=== PATIENT | male | born 1985 | race Caucasian/White ===

== ENCOUNTER 2019-02-12 12:21 | Emergency (ER) | payer OTHER ==
[2019-02-12 12:43] VITALS: RESP 18
--- NOTE | 2019-02-12 14:15 | ED ---
General Adult HPI - General Chief complaint: Extremity Problem,Nontraumatic Stated complaint: Legs swollen/red Time Seen by Provider: 02/12/19 13:40 Source: patient Mode of arrival: ambulatory Limitations: no limitations - History of Present Illness Initial comments: 33-year-old male patient presents to the emergency department today for evaluation of bilateral lower extremity edema. Patient states he has had swelling for quite some time however has been worsening over the last few days. Patient states his legs are now red and warm to touch. Patient states he has gained 50 pounds over the last couple of months which is concerning to him. He denies any shortness of breath or chest pain with this. States he does have a history of hepatitis C and does take methadone currently. Denies any other medications or medical conditions. Patient denies any recent rash, fever, chills, abdominal pain, nausea, vomiting, diarrhea, constipation, back pain, numbness, tingling, dizziness, weakness, hematuria, dysuria, urinary urgency, urinary frequency, headache, visual changes, or any other complaints. - Related Data Home Medications Medication Instructions Recorded Confirmed Methadone [Dolophine] 70 mg PO DAILY 02/12/19 02/12/19 Previous Rx's Medication Instructions Recorded Cephalexin [Keflex] 500 mg PO Q6HR #40 cap 02/12/19 Allergies Allergy/AdvReac Type Severity Reaction Status Date / Time amoxicillin [From Augmentin] Allergy Swelling Verified 02/12/19 13:55 bee pollen Allergy Swelling Verified 02/12/19 13:55 cefaclor [From Ceclor] Allergy Swelling Verified 02/12/19 13:55 clavulanic acid Allergy Swelling Verified 02/12/19 13:55 [From Augmentin] Penicillins Allergy Swelling Verified 02/12/19 13:55 Review of Systems ROS Statement: Those systems with pertinent positive or pertinent negative responses have been documented in the HPI. ROS Other: All systems not noted in ROS Statement are negative. Past Medical History Past Medical History: No Reported History Additional Past Medical History / Comment(s): ( use to use heroin) History of Any Multi-Drug Resistant Organisms: None Reported, Unobtainable Additional Past Surgical History / Comment(s): skin graft Past Psychological History: No Psychological Hx Reported Smoking Status: Current every day smoker Past Alcohol Use History: Occasional Past Drug Use History: None Reported General Exam Limitations: no limitations General appearance: alert, in no apparent distress, other (Physical well- developed, well-nourished adult male patient in no acute distress. Vital signs upon presentation are temperature 98.0F, pulse 111, respirations 18, blood pressure 135/75, pulse ox 99% on room air.) Eye exam: Present: normal appearance, PERRL, EOMI. Absent: scleral icterus, conjunctival injection, periorbital swelling ENT exam: Present: normal exam, normal oropharynx, mucous membranes moist Respiratory exam: Present: normal lung sounds bilaterally. Absent: respiratory distress, wheezes, rales, rhonchi, stridor Cardiovascular Exam: Present: regular rate, normal rhythm, normal heart sounds. Absent: systolic murmur, diastolic murmur, rubs, gallop, clicks GI/Abdominal exam: Present: soft, normal bowel sounds. Absent: distended, tenderness, guarding, rebound, rigid Extremities exam: Present: full ROM, normal capillary refill, other (Patient has bilateral lower extremities edema. It is nonpitting. There is some erythema overlying the bilateral lower extremities. Warm to touch. Skin is otherwise pink, warm, dry. Cap refills less than 3 seconds. Pedal pulses 2+ and equal bilaterally). Absent: normal inspection, tenderness, pedal edema, joint swelling, calf tenderness Neurological exam: Present: alert, oriented X3, CN II-XII intact Psychiatric exam: Present: normal affect, normal mood Skin exam: Present: warm, dry, intact, normal color. Absent: rash Course Vital Signs 02/12/19 02/12/19 12:39 16:11 Temperature 98.0 F 98.8 F Pulse Rate 111 H 86 Respiratory 18 18 Rate Blood Pressure 135/75 111/56 O2 Sat by Pulse 99 96 Oximetry Medical Decision Making - Medical Decision Making 33-year-old male patient presented to the emergency department today for evaluation of bilateral lower extremity edema and redness. Physical examination did reveal swollen lower legs and feet. This is nonpitting edema. He does have mild erythema overlying both lower legs. Labs reviewed and did reveal elevated liver enzymes, patient does admit to a history of hepatitis C. Blood sugar was elevated. Remainder of Labs are unremarkable. BNP negative. Chest x-ray showed no acute cardiopulmonary process. I did discuss findings and results with the patient. He'll be given DAX hose to wear for compression and instructed to elevate his legs as much as possible. He is given Keflex for early cellulitis. We'll discharge at this time to follow-up primary care physician for recheck. He is instructed to discuss elevated blood sugar and have liver enzymes rechecked. One has been referred to him. Return parameters discussed in detail. He verbalizes understanding and agrees with this plan. - Lab Data Result diagrams: 02/12/19 14:36 02/12/19 14:36 Lab Results 02/12/19 02/12/19 02/12/19 Range/Units 14:36 14:36 14:36 WBC 5.3 (3.8-10.6) k/uL RBC 4.04 L (4.30-5.90) m/uL Hgb 13.9 (13.0-17.5) gm/dL Hct 41.4 (39.0-53.0) % MCV 102.4 H (80.0-100.0) fL MCH 34.4 (25.0-35.0) pg MCHC 33.5 (31.0-37.0) g/dL RDW 14.3 (11.5-15.5) % Plt Count 82 L (150-450) k/uL Neutrophils % 66 % Lymphocytes % 25 % Monocytes % 5 % Eosinophils % 2 % Basophils % 1 % Neutrophils # 3.5 (1.3-7.7) k/uL Lymphocytes # 1.3 (1.0-4.8) k/uL Monocytes # 0.3 (0-1.0) k/uL Eosinophils # 0.1 (0-0.7) k/uL Basophils # 0.0 (0-0.2) k/uL Manual Slide Review Performed Macrocytosis Slight Sodium 139 (137-145) mmol/L Potassium 4.5 (3.5-5.1) mmol/L Chloride 108 H (98-107) mmol/L Carbon Dioxide 22 (22-30) mmol/L Anion Gap 9 mmol/L BUN 10 (9-20) mg/dL Creatinine 0.61 L (0.66-1.25) mg/dL Est GFR (CKD-EPI)AfAm >90 (>60 ml/min/1.73 sqM) Est GFR (CKD-EPI)NonAf >90 (>60 ml/min/1.73 sqM) Glucose 146 H (74-99) mg/dL Calcium 8.2 L (8.4-10.2) mg/dL Total Bilirubin 0.9 (0.2-1.3) mg/dL AST 200 H (17-59) U/L ALT 153 H (21-72) U/L Alkaline Phosphatase 117 (38-126) U/L NT-Pro-B Natriuret Pep 76 pg/mL Total Protein 7.9 (6.3-8.2) g/dL Albumin 3.3 L (3.5-5.0) g/dL - Radiology Data Radiology results: report reviewed, image reviewed Two-view x-ray of the chest is obtained. Report is reviewed in its entirety. Impression by Dr. Hu shows no acute cardio pulmonary process. Disposition Clinical Impression: Cellulitis of both lower extremities, Lower extremity edema, Elevated liver enzymes, Hyperglycemia Disposition: HOME SELF-CARE Condition: Good Instructions (If sedation given, give patient instructions): Cellulitis (ED), Leg Edema (ED), Diabetic Hyperglycemia (ED) Additional Instructions: Wear DAX hose to aid with swelling, keep legs elevated as much as possible. Take DAX hose off for sleeping. Complete antibiotic prescription in full. Follow-up with her primary care physician for recheck as soon as possible. Return to the emergency department for any new, worsening, or concerning symptoms. Prescriptions: Cephalexin [Keflex] 500 mg PO Q6HR #40 cap Is patient prescribed a controlled substance at d/c from ED?: No Referrals: Jean-Claude Sy MD [STAFF PHYSICIAN] - 1-2 days Time of Disposition: 15:53
[2019-02-12 14:52] LABS: Basophils % (A) 1 %; Eosinophils # (A) 0.1 k/uL (0-0.7); Eosinophils % (A) 2 %; HCT 41.4 % (39.0-53.0); HGB 13.9 gm/dL (13.0-17.5); Lymphocytes # (A) 1.3 k/uL (1.0-4.8); Lymphocytes % (A) 25 %; MCH 34.4 pg (25.0-35.0); MCHC 33.5 g/dL (31.0-37.0); MCV 102.4 fL (80.0-100.0); Macrocytosis Slight; Mean Platelet Volume 8.5; Monocytes # (A) 0.3 k/uL (0-1.0); Monocytes % (A) 5 %; Neutrophils # (A) 3.5 k/uL (1.3-7.7); Neutrophils % (A) 66 %; RBC 4.04 m/uL (4.30-5.90); RDW 14.3 % (11.5-15.5); WBC 5.3 k/uL (3.8-10.6)
--- NOTE | 2019-02-12 14:52 | XR ---
EXAMINATION TYPE: XR chest 2V DATE OF EXAM: 02/12/2019 COMPARISON: NONE HISTORY: Chest pain TECHNIQUE: Frontal and lateral views of the chest are obtained. FINDINGS: There is no focal air space opacity, pleural effusion, or pneumothorax seen. The cardiac silhouette size is within normal limits. The osseous structures are intact. IMPRESSION: No acute cardiopulmonary process.
[2019-02-12 14:55] LABS: ALT 153 U/L (21-72); AST 200 U/L (17-59); Albumin 3.3 g/dL (3.5-5.0); Alkaline Phosphatase 117 U/L (38-126); Anion Gap 9 mmol/L; Blood Urea Nitrogen 10 mg/dL (9-20); Calcium 8.2 mg/dL (8.4-10.2); Carbon Dioxide 22 mmol/L (22-30); Chloride 108 mmol/L (98-107); Glucose 146 mg/dL (74-99); Potassium 4.5 mmol/L (3.5-5.1); Sodium 139 mmol/L (137-145); Total Bilirubin 0.9 mg/dL (0.2-1.3); Total Protein 7.9 g/dL (6.3-8.2)
[2019-02-12 15:05] LABS: Platelet Count 82 k/uL (150-450)
[2019-02-12 16:14] VITALS: BP 111/56; PULSE 86; TEMP 98.8
== END 2019-02-12 16:11 | disposition home or self-care (01) ==
LOC: EC 12:21
DX: L03.116 Cellulitis of left lower limb (principal); L03.115 Cellulitis of right lower limb; R60.0 Localized edema; R74.8 Abnormal levels of other serum enzymes; F17.200 Nicotine dependence, unspecified, uncomplicated; Z79.899 Other long term (current) drug therapy; Z88.0 Allergy status to penicillin; Z88.1 Allergy status to other antibiotic agents; Z91.030 Bee allergy status
CPT/HCPCS: 36415; 71046; 80053; 83880; 85025; 99283

== ENCOUNTER 2019-06-20 10:14 | Emergency (ER) | payer OTHER ==
[2019-06-20 10:21] VITALS: RESP 18
[2019-06-20] MEDS ORDERED: SODIUM CHLORIDE 0.9% 1,000 ML IV STA (10:33)
--- NOTE | 2019-06-20 10:38 | ED ---
General Adult HPI - General Chief complaint: Recheck/Abnormal Lab/Rx Stated complaint: Nausea/cramps Time Seen by Provider: 06/20/19 10:23 Source: patient Mode of arrival: ambulatory Limitations: no limitations - History of Present Illness Initial comments: Patient is a 33-year-old male presenting to emergency Department with complaints of muscle cramping and loss of appetite 1 day. Patient states he was cramping really bad last night that in his sides, lower legs, and hands. Patient denies fever, chills, vomiting, chest pain, shortness of breath, urinary complaints. Patient states he feels intermittent nausea. Patient admits to being on meth adone on and off for the last for 5 years. No recent changes in dosing. Patient denies any other drug use at this time. Patient does not take any other medications. No other complaints at this time. - Related Data Home Medications Medication Instructions Recorded Confirmed Acetaminophen [Tylenol] 650 mg PO Q6H PRN 06/20/19 06/20/19 Methadone HCl [Methadone Intensol] 50 mg PO DAILY 06/20/19 06/20/19 Allergies Allergy/AdvReac Type Severity Reaction Status Date / Time amoxicillin [From Augmentin] Allergy Swelling Verified 06/20/19 10:26 bee pollen Allergy Swelling Verified 06/20/19 10:26 cefaclor [From Ceclor] Allergy Swelling Verified 06/20/19 10:26 clavulanic acid Allergy Swelling Verified 06/20/19 10:26 [From Augmentin] Penicillins Allergy Swelling Verified 06/20/19 10:26 Review of Systems ROS Statement: Those systems with pertinent positive or pertinent negative responses have been documented in the HPI. ROS Other: All systems not noted in ROS Statement are negative. Past Medical History Past Medical History: No Reported History Additional Past Medical History / Comment(s): ( use to use heroin), hep C History of Any Multi-Drug Resistant Organisms: None Reported Date of last positivie culture/infection: PT believes he may had MRSA within groin unknown yr Additional Past Surgical History / Comment(s): skin graft Past Psychological History: No Psychological Hx Reported Smoking Status: Current every day smoker Past Alcohol Use History: None Reported, Occasional Past Drug Use History: None Reported General Exam - General Exam Comments Initial Comments: GENERAL: Obese, Well-appearing, well-nourished and in no acute distress. HEAD: Atraumatic, normocephalic. EYES: Pupils equal round and reactive to light, extraocular movements intact, sclera anicteric, conjunctiva are normal. ENT: TMs normal, nares patent, oropharynx clear without exudates. Moist mucous membranes. NECK: Normal range of motion, supple without lymphadenopathy or JVD. LUNGS: Breath sounds clear to auscultation bilaterally and equal. No wheezes rales or rhonchi. HEART: Regular rate and rhythm without murmurs, rubs or gallops. ABDOMEN: Soft, nontender, normoactive bowel sounds. No guarding, no rebound. No masses appreciated. : Deferred EXTREMITIES: Normal range of motion, no pitting or edema. No clubbing or cyanosis. NEUROLOGICAL: Cranial nerves II through XII grossly intact. Normal speech, normal gait. PSYCH: Normal mood, normal affect. SKIN: Warm, Dry, normal turgor. Mild venous insufficiency in bilateral lower legs. Limitations: no limitations Course Vital Signs 06/20/19 10:16 Temperature 98.2 F Pulse Rate 101 H Respiratory 18 Rate Blood Pressure 144/88 O2 Sat by Pulse 97 Oximetry Medical Decision Making - Medical Decision Making Patient is a 33-year-old male presenting with 1 day history of cramps in his sides, lower legs, and hands. Patient states episode lasted last night for approximately 30 minutes. Patient states he just feels a little fatigued today but no cramping. Upon arrival, vital signs are stable, afebrile. Patient admit s to being on methadone for the past 4-5 years. CBC is within normal limits. CMP shows slightly elevated liver enzymes with AST 189-ALT 134. After discussing these findings with patient patient admits to having hepatitis. Patient's UA is within normal limits. Patient's urine tox screen is positive for methadone and cocaine. Patient was given a liter of fluids and states he feels improvement. Patient is stable for discharge at this time. Case discussed with Dr. Hewitt. Return parameters were discussed with the patient he verbalizes understanding. - Lab Data Result diagrams: 06/20/19 11:00 06/20/19 11:00 Lab Results 06/20/19 06/20/19 06/20/19 Range/Units 11:00 11:00 11:00 WBC 8.1 (3.8-10.6) k/uL RBC 3.75 L (4.30-5.90) m/uL Hgb 13.0 (13.0-17.5) gm/dL Hct 38.8 L (39.0-53.0) % MCV 103.5 H (80.0-100.0) fL MCH 34.7 (25.0-35.0) pg MCHC 33.6 (31.0-37.0) g/dL RDW 15.1 (11.5-15.5) % Plt Count 80 L (150-450) k/uL Neutrophils % 52 % Lymphocytes % 36 % Monocytes % 7 % Eosinophils % 2 % Basophils % 1 % Neutrophils # 4.2 (1.3-7.7) k/uL Lymphocytes # 3.0 (1.0-4.8) k/uL Monocytes # 0.6 (0-1.0) k/uL Eosinophils # 0.1 (0-0.7) k/uL Basophils # 0.1 (0-0.2) k/uL Manual Slide Review Performed Macrocytosis Slight Sodium 138 (137-145) mmol/L Potassium 3.7 (3.5-5.1) mmol/L Chloride 105 (98-107) mmol/L Carbon Dioxide 24 (22-30) mmol/L Anion Gap 9 mmol/L BUN 20 (9-20) mg/dL Creatinine 1.14 (0.66-1.25) mg/dL Est GFR (CKD-EPI)AfAm >90 (>60 ml/min/1.73 sqM) Est GFR (CKD-EPI)NonAf 85 (>60 ml/min/1.73 sqM) Glucose 124 H (74-99) mg/dL Calcium 8.9 (8.4-10.2) mg/dL Total Bilirubin 1.0 (0.2-1.3) mg/dL AST 189 H (17-59) U/L ALT 134 H (21-72) U/L Alkaline Phosphatase 104 (38-126) U/L Total Protein 8.0 (6.3-8.2) g/dL Albumin 3.3 L (3.5-5.0) g/dL Urine Color Yellow Urine Appearance Clear (Clear) Urine pH 6.0 (5.0-8.0) Ur Specific [place] 1.033 (1.001-1.035) Urine Protein Trace H (Negative) Urine Glucose (UA) Negative (Negative) Urine Ketones Trace H (Negative) Urine Blood Negative (Negative) Urine Nitrite Negative (Negative) Urine Bilirubin Negative (Negative) Urine Urobilinogen 4.0 (<2.0) mg/dL Ur Leukocyte Esterase Negative (Negative) Urine Opiates Screen Not Detected (NotDetected) Ur Oxycodone Screen Not Detected (NotDetected) Urine Methadone Screen Detected H (NotDetected) Ur Propoxyphene Screen Not Detected (NotDetected) Ur Barbiturates Screen Not Detected (NotDetected) U Tricyclic Antidepress Not Detected (NotDetected) Ur Phencyclidine Scrn Not Detected (NotDetected) Ur Amphetamines Screen Not Detected (NotDetected) U Methamphetamines Scrn Not Detected (NotDetected) U Benzodiazepines Scrn Not Detected (NotDetected) Urine Cocaine Screen Detected H (NotDetected) U Marijuana (THC) Screen Not Detected (NotDetected) Disposition Clinical Impression: Dehydration, Leg cramping Disposition: HOME SELF-CARE Condition: Stable Instructions (If sedation given, give patient instructions): Dehydration (ED) Additional Instructions: Please return to the Emergency Department if symptoms worsen or any other concerns. Follow-up with PCP as discussed. Continue to increase fluid intake. Is patient prescribed a controlled substance at d/c from ED?: No Referrals: None,Stated [Primary Care Provider] - 1-2 days
[2019-06-20 11:33] LABS: Basophils # (A) 0.1 k/uL (0-0.2); Basophils % (A) 1 %; Eosinophils # (A) 0.1 k/uL (0-0.7); Eosinophils % (A) 2 %; HCT 38.8 % (39.0-53.0); Lymphocytes % (A) 36 %; MCH 34.7 pg (25.0-35.0); MCHC 33.6 g/dL (31.0-37.0); MCV 103.5 fL (80.0-100.0); Macrocytosis Slight; Mean Platelet Volume 9.3; Monocytes # (A) 0.6 k/uL (0-1.0); Monocytes % (A) 7 %; Neutrophils # (A) 4.2 k/uL (1.3-7.7); Neutrophils % (A) 52 %; RBC 3.75 m/uL (4.30-5.90); RDW 15.1 % (11.5-15.5); WBC 8.1 k/uL (3.8-10.6)
[2019-06-20 11:44] LABS: ALT 134 U/L (21-72); AST 189 U/L (17-59); African American GFR (CKD) >90 (>60 ml/min/1.73 sqM); Albumin 3.3 g/dL (3.5-5.0); Alkaline Phosphatase 104 U/L (38-126); Anion Gap 9 mmol/L; Blood Urea Nitrogen 20 mg/dL (9-20); Calcium 8.9 mg/dL (8.4-10.2); Carbon Dioxide 24 mmol/L (22-30); Chloride 105 mmol/L (98-107); Glucose 124 mg/dL (74-99); Non-African American GFR(CKD) 85 (>60 ml/min/1.73 sqM); Potassium 3.7 mmol/L (3.5-5.1); Sodium 138 mmol/L (137-145)
[2019-06-20 11:50] LABS: Appearance,Urine Clear (Clear); Bilirubin,Urine Negative (Negative); Blood,Urine Negative (Negative); Color,Urine Yellow; Glucose,Urine (UA) Negative (Negative); Ketones,Urine Trace (Negative); Leukocyte Esterase,Urine Negative (Negative); Nitrite,Urine Negative (Negative); Protein,Urine Trace (Negative); Specific Gravity,Urine 1.033 (1.001-1.035)
[2019-06-20 12:01] LABS: Amphetamine Screen,Urine Not Detected (NotDetected); Barbiturate Screen,Urine Not Detected (NotDetected); Benzodiazepines Screen,Urine Not Detected (NotDetected); Cocaine Screen,Urine Detected (NotDetected); Methadone Screen, Urine Detected (NotDetected); Opiate Screen,Urine Not Detected (NotDetected); Oxycodone Screen, Urine Not Detected (NotDetected); Phencyclidine Screen,Urine Not Detected (NotDetected); Tricyclic Antidepressant,Urine Not Detected (NotDetected); Urn Cannabinoid Scrn Not Detected (NotDetected)
[2019-06-20 12:10] LABS: Platelet Count 80 k/uL (150-450)
[2019-06-20 12:37] VITALS: BP 138/78; PULSE 95; TEMP 98
== END 2019-06-20 12:36 | disposition home or self-care (01) ==
LOC: EC 10:14
DX: E86.0 Dehydration (principal); R25.2 Cramp and spasm; R74.8 Abnormal levels of other serum enzymes; I87.2 Venous insufficiency (chronic) (peripheral); F17.200 Nicotine dependence, unspecified, uncomplicated
CPT/HCPCS: 36415; 80053; 80306; 81003; 85025; 96360; 99283

== ENCOUNTER 2021-05-09 21:03 | Emergency (ER) | payer OTHER ==
[2021-05-09 21:14] VITALS: BP 131/67; PULSE 107; RESP 20; TEMP 98.1
--- NOTE | 2021-05-09 21:29 | ED ---
General Adult HPI - General Source: patient, RN notes reviewed, old records reviewed Mode of arrival: ambulatory Limitations: no limitations <Cabrera Chrsitianson - Last Filed: 05/09/21 21:28> <José Luis Guevara - Last Filed: 05/11/21 02:31> - General Chief complaint: Psychiatric Symptoms Stated complaint: Mental health Time Seen by Provider: 05/09/21 21:16 - History of Present Illness Initial comments: 35-year-old male presenting for mental health evaluation. He is intoxicated. He admits to alcohol consumption. He states he is hearing voices that her stay stating that his is cheating on him. He's states he has had suicidal thoughts with no suicidal attempt. He has previous history of mental illness and has required inpatient psychiatric evaluation treatment in the past. No physical complaints. (Cabrera Christianson) - Related Data Home Medications Medication Instructions Recorded Confirmed Acetaminophen [Tylenol] 650 mg PO Q6H PRN 06/20/19 06/20/19 Methadone HCl [Methadone Intensol] 50 mg PO DAILY 06/20/19 06/20/19 Allergies Allergy/AdvReac Type Severity Reaction Status Date / Time amoxicillin [From Augmentin] Allergy Swelling Verified 05/09/21 21:10 bee pollen Allergy Swelling Verified 05/09/21 21:10 cefaclor [From Ceclor] Allergy Swelling Verified 05/09/21 21:10 clavulanic acid Allergy Swelling Verified 05/09/21 21:10 [From Augmentin] Penicillins Allergy Swelling Verified 05/09/21 21:10 Review of Systems ROS Other: All systems not noted in ROS Statement are negative. <Cabrera Christianson - Last Filed: 05/09/21 21:28> ROS Other: All systems not noted in ROS Statement are negative. <José Luis Guevara - Last Filed: 05/11/21 02:31> ROS Statement: Those systems with pertinent positive or pertinent negative responses have been documented in the HPI. Past Medical History Past Medical History: No Reported History Additional Past Medical History / Comment(s): ( use to use heroin), hep C History of Any Multi-Drug Resistant Organisms: None Reported Date of last positivie culture/infection: PT believes he may had MRSA within groin unknown yr Past Surgical History: No Surgical Hx Reported Additional Past Surgical History / Comment(s): skin graft Past Psychological History: Anxiety, Depression Smoking Status: Current every day smoker Past Alcohol Use History: Daily Past Drug Use History: Marijuana <Cabrera Christianson Blade - Last Filed: 05/09/21 21:28> General Exam Limitations: no limitations General appearance: alert, appears intoxicated, anxious Head exam: Present: atraumatic, normocephalic Eye exam: Present: normal appearance, PERRL ENT exam: Present: normal exam Neck exam: Present: normal inspection. Absent: tenderness, meningismus Respiratory exam: Present: normal lung sounds bilaterally. Absent: respiratory distress, wheezes Cardiovascular Exam: Present: regular rate, normal rhythm GI/Abdominal exam: Present: soft. Absent: distended, tenderness, guarding Extremities exam: Present: normal inspection, normal capillary refill. Absent: pedal edema Neurological exam: Present: alert, normal gait. Absent: motor sensory deficit Psychiatric exam: Present: depressed, agitated, suicidal ideation Skin exam: Present: warm, dry, intact <Cabrera Christianson N - Last Filed: 05/09/21 21:28> General appearance: alert, in no apparent distress Head exam: Present: atraumatic, normocephalic, normal inspection Eye exam: Present: normal appearance, PERRL, EOMI. Absent: scleral icterus, conjunctival injection, periorbital swelling ENT exam: Present: normal exam, mucous membranes moist Neck exam: Present: normal inspection. Absent: tenderness, meningismus, lymphadenopathy Respiratory exam: Present: normal lung sounds bilaterally. Absent: respiratory distress, wheezes, rales, rhonchi, stridor Cardiovascular Exam: Present: regular rate, normal rhythm, normal heart sounds. Absent: systolic murmur, diastolic murmur, rubs, gallop, clicks GI/Abdominal exam: Present: soft, normal bowel sounds. Absent: distended, tenderness, guarding, rebound, rigid Extremities exam: Present: normal inspection, full ROM, normal capillary refill. Absent: tenderness, pedal edema, joint swelling, calf tenderness Back exam: Present: normal inspection Neurological exam: Present: alert, oriented X3, CN II-XII intact Psychiatric exam: Present: normal affect, normal mood Skin exam: Present: warm, dry, intact, normal color. Absent: rash <José Luis Guevara - Last Filed: 05/11/21 02:31> Course <Cabrera Christianson - Last Filed: 05/09/21 21:28> <José Luis Guevara - Last Filed: 05/11/21 02:31> Vital Signs 05/09/21 21:11 Temperature 98.1 F Pulse Rate 107 H Respiratory 20 Rate Blood Pressure 131/67 O2 Sat by Pulse 100 Oximetry - Reevaluation(s) Reevaluation #1: 05/09/21 2300 Patient care signed out to Dr. Guevara At shift change awaiting sobriety and EPS evaluation. (Cabrera Christianson) Patient was made medically clear for psychiatric evaluation (José Luis Guevara) Medical Decision Making <José Luis Guevara - Last Filed: 05/11/21 02:31> - Medical Decision Making 35 male to the ER for evaluation. Patient Dese for evaluation of psychiatric illness and drunk, patient was seen in however psychiatry not homicidal or suicidal now. Patient can be discharged home (José Luis Guevara) Disposition <Cabrera Christianson - Last Filed: 05/09/21 21:28> Is patient prescribed a controlled substance at d/c from ED?: No <José Luis Guevara - Last Filed: 05/11/21 02:31> Clinical Impression: Depression Disposition: HOME SELF-CARE Condition: Fair Instructions (If sedation given, give patient instructions): Depression (ED) Referrals: None,Stated [Primary Care Provider] - 1-2 days
== END 2021-05-10 02:30 | disposition home or self-care (01) ==
LOC: EC 21:03
DX: F32.9 Major depressive disorder, single episode, unspecified (principal); F41.9 Anxiety disorder, unspecified; F17.200 Nicotine dependence, unspecified, uncomplicated; F12.90 Cannabis use, unspecified, uncomplicated; Z88.0 Allergy status to penicillin; Z88.1 Allergy status to other antibiotic agents
CPT/HCPCS: 82075; 99283